=== PATIENT | female | born 1990 | race Caucasian/White ===

== ENCOUNTER 2017-07-10 22:34 | Emergency (ER) | payer SELFPAY ==
[~2017-07-10] VITALS: Ht 160 cm; Wt 55.0 kg
[~2017-07-10 22:34] MED LIST: ONDA4TAB7 OR; OXYC-360 PO; Z.0.NO CURRENT MEDS
[2017-07-10 22:36] VITALS: BP 113/86; PULSE 74; RESP 15; TEMP 98; O2SAT 99
[2017-07-10] MEDS ORDERED: SODIUM CHLOR 0.9% 1000 ML INJ 1,000 ML IV ONE (22:49)
[2017-07-10] MEDS ORDERED: SODIUM CHLORIDE 0.9% FLUSH 10 ML FLUSH IVF PRN (23:00)
[2017-07-10 23:16] VITALS: RESP 20; TEMP 97.8; O2SAT 100
[2017-07-10 23:19] VITALS: BP 99/53; RESP 17
[2017-07-10 23:21] VITALS: BP 97/56; RESP 18
[2017-07-10 23:23] VITALS: BP 98/56; RESP 18
--- NOTE | 2017-07-10 23:35 | RADRPT ---
EXAM DATE/TIME: 07/10/2017 23:15 [place] COMPARISON: No previous studies available for comparison. INDICATIONS : Pt passed out and was lowered to ground. MEDICAL HISTORY : None. SURGICAL HISTORY : None. ENCOUNTER: Initial ACUITY: 1 day PAIN SCORE: 5/10 LOCATION: Bilateral chest FINDINGS: A single view of the chest demonstrates the lungs to be symmetrically aerated without evidence of mas s, infiltrate or effusion. The cardiomediastinal contours are unremarkable. Osseous structures are intact. CONCLUSION: No evidence of acute cardiopulmonary disease. Destin Hart MD on July 10, 2017 at 23:34 Board Certified Radiologist. This report was verified electronically.
--- NOTE | 2017-07-10 23:46 | PD ---
HPI Chief Complaint: Syncope/Near-Syncope Time Seen by Provider: 23:00 Travel History International Travel<30 days: No Contact w/Intl Traveler<30days: No Traveled to known affect area: No History of Present Illness HPI 27yo F with no significant PMH presents to the ED with c/o episode of feeling hot, then ringing in both ears, blurred vision and passing out while standing at home making dinner. Said she did not hit her head and was caught. Said she woke up and felt nauseous and vomited. Said she felt better upon arrival. Tinnitus and nausea had improved. Denies any fever, cough, chest pain, sob, abdominal pain, focal weakness or numbness. Said she had similar symptoms when she had a panic attack. History Past Medical History Medical History: Denies Significant Hx LMP: 06/22/17 : 1 Para: 0 Past Surgical History Surgical History: No Previous Surgery Social History Alcohol Use: Yes (OCC) Tobacco Use: No Allergies-Medications (Allergen,Severity, Reaction): Coded Allergies: No Known Allergies (Verified Adverse Reaction, Unknown, 07/10/17) Reported Meds & Prescriptions Reported Meds & Active Scripts Active No Active Prescriptions or Reported Medications Review of Systems Except as stated in HPI: all other systems reviewed are Neg Physical Exam Narrative GENERAL: 27yo F not in distress. SKIN: Focused skin assessment warm/dry. HEAD: Atraumatic. Normocephalic. EYES: Pupils equal and round at 3mm bilaterally. EOMI. ENT: +Cerumen in right ear. NECK: Trachea midline. No JVD. CARDIOVASCULAR: Regular rate and rhythm. No murmur appreciated. RESPIRATORY: No accessory muscle use. Clear to auscultation. Breath sounds equal bilaterally. GASTROINTESTINAL: Abdomen soft, non-tender, nondistended. MUSCULOSKELETAL: No obvious deformities. No clubbing. No cyanosis. No edema. NEUROLOGICAL: Awake and alert. No obvious cranial nerve deficits. Motor grossly within normal limits. Normal speech. PSYCHIATRIC: Appropriate mood and affect; insight and judgment normal. Data Data Last Documented VS Vital Signs Date Time Temp Pulse Resp B/P (MAP) Pulse Ox O2 Delivery O2 Flow Rate FiO2 07/11/17 01:46 07/11/17 01:08 78 18 99 Room Air 07/10/17 23:16 97.8 Orders Orders Electrocardiogram (07/10/17 22:49) Beta Hcg (Quant/Titer) (07/10/17 22:49) Ed Urine Pregnancytest Poc (07/10/17 22:49) Complete Blood Count With Diff (07/10/17 22:49) Comprehensive Metabolic Panel (07/10/17 22:49) Magnesium (Mg) (07/10/17 22:49) Act Partial Throm Time (Ptt) (07/10/17 22:49) Prothrombin Time / Inr (Pt) (07/10/17 22:49) Urinalysis - C+S If Indicated (07/10/17 22:49) Chest, Single Ap (07/10/17 22:49) Blood Glucose (07/10/17 22:49) Ecg Monitoring (07/10/17:49) Iv Access Insert/Monitor (07/10/17:49) Oximetry (07/10/17 22:49) Sodium Chloride 0.9% Flush (Ns Flush) (07/10/17 23:00) Sodium Chlor 0.9% 1000 Ml Inj (Ns 1000 M (07/10/17 22:49) Orthostatic Vital Signs (07/10/17 22:49) Ed Discharge Order (07/11/17 01:29) Labs Laboratory Tests Test 07/10/17 23:05 07/10/17 23:25 White Blood Count 8.4 TH/MM3 Red Blood Count 4.10 MIL/MM3 Hemoglobin 13.5 GM/DL Hematocrit 38.8 % Mean Corpuscular Volume 94.6 FL Mean Corpuscular Hemoglobin 32.9 PG Mean Corpuscular Hemoglobin Concent 34.8 % Red Cell Distribution Width 12.0 % Platelet Count 213 TH/MM3 Mean Platelet Volume 9.2 FL Neutrophils (%) (Auto) 53.0 % Lymphocytes (%) (Auto) 37.8 % Monocytes (%) (Auto) 6.5 % Eosinophils (%) (Auto) 2.0 % Basophils (%) (Auto) 0.7 % Neutrophils # (Auto) 4.4 TH/MM3 Lymphocytes # (Auto) 3.2 TH/MM3 Monocytes # (Auto) 0.5 TH/MM3 Eosinophils # (Auto) 0.2 TH/MM3 Basophils # (Auto) 0.1 TH/MM3 CBC Comment DIFF FINAL Differential Comment Prothrombin Time 11.0 SEC Prothromb Time International Ratio 1.0 RATIO Activated Partial Thromboplast Time 25.7 SEC Blood Urea Nitrogen 9 MG/DL Creatinine 0.77 MG/DL Random Glucose 88 MG/DL Total Protein 7.5 GM/DL Albumin 3.9 GM/DL Calcium Level 8.5 MG/DL Magnesium Level 2.1 MG/DL Alkaline Phosphatase 45 U/L Aspartate Amino Transf (AST/SGOT) 13 U/L Alanine Aminotransferase (ALT/SGPT) 20 U/L Total Bilirubin 0.3 MG/DL Sodium Level 139 MEQ/L Potassium Level 3.4 MEQ/L Chloride Level 101 MEQ/L Carbon Dioxide Level 28.9 MEQ/L Anion Gap 9 MEQ/L Estimat Glomerular Filtration Rate 89 ML/MIN Human Chorionic Gonadotropin, Quant LESS THAN 1 MIU/ML Urine Color YELLOW Urine Turbidity HAZY Urine pH 6.0 Urine Specific [place] 1.033 Urine Protein 30 mg/dL Urine Glucose (UA) NEG mg/dL Urine Ketones NEG mg/dL Urine Occult Blood NEG Urine Nitrite NEG Urine Bilirubin NEG Urine Urobilinogen 2.0 MG/DL Urine Leukocyte Esterase NEG Urine RBC 1 /hpf Urine WBC 2 /hpf Urine Squamous Epithelial Cells 3 /hpf Urine Bacteria RARE /hpf Urine Hyaline Casts 45 /lpf Urine Mucus MANY /lpf Microscopic Urinalysis Comment CULT NOT INDICATED MDM Medical Decision Making Medical Screen Exam Complete: Yes Emergency Medical Condition: Yes Interpretation(s) EKG: NSR 64bpm. Normal axis. No ST segment elevation or depression. Differential Diagnosis Vasovagal syncope vs. hypoglycemia vs. Narrative Course 27yo F with episode of what sounds like vasovagal syncope. Pt is well appearing with no symptoms now. BP is on the lower side but negative orthostatic. Urine negative. Labs reviewed, no leukocytosis. H/H 13.5/38.8. negative. CMP unremarkable. Glucose 88. UA showed no leukocyte. Culture not indicated. CXR negative. Pt reevaluated at bedside and has no symptoms now. Return precautions given. Diagnosis Primary Impression: Vasovagal syncope Patient Instructions: General Instructions Departure Forms: Tests/Procedures Additional Instructions: Please follow up with your primary care physician in 3-7 days. Return to the ED if symptoms worsen. Med/Other Pt SpecificInfo: No Change to Meds Scripts No Active Prescriptions or Reported Meds Disposition: 01 DISCHARGE HOME Condition: Stable Ashleigh Felix Jul 10, 2017 23:46
[2017-07-10 23:48] LABS: BACTERIA, URINE RARE /hpf; BLOOD, URINE NEG (NEG); COMMENT (UR) CULT NOT INDICATED; CULTURE IF INDICATED CULT NOT INDICATED; GLUCOSE,URINE NEG (NEG); HYALINE CAST, URINE 45 /lpf (RARE); KETONE, URINE NEG (NEG); MUCUS URINE MANY /lpf (OCC); NITRITE,URINE NEG (NEG); SQUAMOUS EPITHELIAL CELL URINE 3 /hpf (0-5); URINE COLOR YELLOW (YELLW/STRAW)
[2017-07-10 23:52] LABS: AUTOMATED NEUTROPHIL # 4.4 TH/MM3 (1.8-7.7); BASOPHIL # 0.1 TH/MM3 (0-0.2); BASOPHIL % 0.7 % (0.0-2.0); EOSINOPHIL # 0.2 TH/MM3 (0-0.4); HEMATOCRIT 38.8 % (35.0-46.0); HEMO FLAGS DIFF FINAL; LYMPH % 37.8 % (9.0-44.0); LYMPHOCYTE # 3.2 TH/MM3 (1.0-4.8); MEAN CELL VOLUME 94.6 FL (80.0-100.0); MEAN CORPUSCULAR HEMOGLOBIN 32.9 PG (27.0-34.0); MEAN CORPUSCULAR HGB CONC 34.8 % (32.0-36.0); MONO % 6.5 % (0.0-8.0); PLATELET COUNT 213 TH/MM3 (150-450); WHITE BLOOD COUNT 8.4 TH/MM3 (4.0-11.0)
[2017-07-10 23:58] LABS: APTT (PATIENT) 25.7 SEC (24.3-30.1)
[2017-07-11] LABS: ALT (GPT) 20 U/L (10-53); ANION GAP 9 MEQ/L (5-15); AST (GOT) 13 U/L (15-37); BICARBONATE 28.9 MEQ/L (21.0-32.0); BLOOD UREA NITROGEN 9 MG/DL (7-18); CHLORIDE 101 MEQ/L (98-107); GLOMERULAR FILTRATION RATE 89 ML/MIN (>89); MAGNESIUM 2.1 MG/DL (1.5-2.5); POTASSIUM 3.4 MEQ/L (3.5-5.1); SODIUM (NA) 139 MEQ/L (136-145)
[2017-07-11 00:05] LABS: ALKALINE PHOSPHATASE 45 U/L (45-117); BETA HCG QUANT LESS THAN 1 MIU/ML (0-5); TOTAL BILIRUBIN ADULT 0.3 MG/DL (0.2-1.0)
[2017-07-11 01:08] VITALS: BP 93/55; PULSE 78; RESP 18; O2SAT 99
--- NOTE | 2017-07-11 09:50 | EKG ---
Date Performed: 07/10/2017 Time Performed: 23:10:17 PTAGE: 27 years EKG: Sinus/ectopic atrial rhythm ABNORMAL RHYTHM ECG NO PREVIOUS TRACING DOCTOR: Ravin Keane Interpretating Date/Time 07/11/2017 09:49:45
== END 2017-07-11 02:05 | disposition home or self-care (01) ==
LOC: NEPE 22:34
DX: R55 Syncope and collapse (principal); H53.8 Other visual disturbances
CPT/HCPCS: 71010; 80053; 81001; 83735; 84702; 84703; 85025; 85610; 85730; 93005; 96360; 96361; 99285; J7030